=== PATIENT | male | born 1995 | race Caucasian/White ===

== ENCOUNTER 2016-07-17 10:08 | Day surgery (SDC) | payer BC ==
[2016-07-17] MEDS ORDERED: ASPI325T6 PO (10:22)
[2016-07-17] MEDS ORDERED: LOPRESSOR 225 MG/TAB PO (10:22)
[2016-07-17 10:40] VITALS: BP 123/66; PULSE 72; TEMP 97.9
[2016-07-17 11:21] LABS: ALBUMIN 4.3 gm/dL (3.5-5.0); BILIRUBIN,DIRECT 0.5 mg/dL (0.0-0.4); BILIRUBIN,TOTAL 1.2 mg/dL (0.0-1.0); TOTAL PROTEIN 6.9 gm/dL (6.4-8.2)
[2016-07-17] MEDS ORDERED: MULTAQ400 MG PO (11:32)
[2016-07-17 12:20] VITALS: BP 104/66; PULSE 79
== END 2016-07-17 12:45 | disposition home or self-care (01) ==
LOC: COL.CAR 10:08
PROVIDERS: Internal Medicine Cardiovascular Disease
DX: I48.0 Paroxysmal atrial fibrillation (principal)